=== PATIENT | female | born 1995 | race Asian ===

== ENCOUNTER → 2017-01-22 | Outpatient (CLI) | payer SELFPAY ==
--- NOTE | ~2017-01-22 | CR63 ---
[facility] A Service of [facility] & [facility] RADIOLOGY TEXT RESULTS PATIENT: SHAILESH RUIZ LOCATION: [facility] : [birth year] UNIT #: [id number] AGE: [address]: KAYLA POLLACK APRN SEX: F ORDER DR: [id number] [facility] [address] [place], [place] [address] [id number] O MR#: [id number] Acc #: [id number] NAME: SHAILESH RUIZ : 1995 SEX: F STUDY DATE/TIME: 01/22/2017 12:14 UNIT: [facility] ROOM: STUDY DESCRIPTION: CR Chest 2 View Attending Physician: Kayla Pollack Referring Physician: Kayla Pollack Ordering Physician: Physician Non-Staff Primary Care Physician: Primary Care Physician No MEDICAL IMAGING REPORT This report is preliminary unless electronic signature is present EXAM Chest, 01/22/2017 HISTORY 21-year-old female positive reaction to TB test. History of cough, short of breath with exertion. FINDINGS PA and lateral chest views show normal cardiac size and configuration. Hilar structures and mediastinal contours are preserved. Bilateral lungs are fully expanded and clear. Costophrenic angles are preserved. IMPRESSION Negative chest. No active disease. Dictated by... Jabier Ham M.D. THIS IS AN ELECTRONICALLY VERIFIED REPORT Jabier Ham M.D. at 01/23/2017 8:05 AM TERESSA/prashanth TD: 01/22/2017 22:06 JOB #: [id number] MEDICAL IMAGING REPORT Page 1 of 1 COPY
== END | disposition home or self-care (01) ==
LOC: CRAD 11:42
DX: R76.11 Nonspecific reaction to tuberculin skin test without active tuberculosis (principal)
CPT/HCPCS: 71020